=== PATIENT | female | born 1940 | race Caucasian/White ===

== ENCOUNTER 2021-02-19 17:29 | Inpatient (IN) | payer MEDICARE, SELFPAY ==
[2021-02-19] VITALS (8 sets, daily range): BP systolic 96–130; BP diastolic 54–60; PULSE 70–85; RESP 13–20; TEMP 36.2–36.7; O2SAT 98–100; BMI 25.7
--- NOTE | ~2021-02-19 | CT_ITS ---
EXAMINATION: CT brain wo con INDICATION: Head injury COMPARISON: 08/17/2017 TECHNIQUE: Standard unenhanced head CT. The dose-length product (DLP) was 1210.67 mGy-cm. The mA was adjusted according to patient size. Iterative reconstruction technique was employed. FINDINGS: There is a right frontal scalp hematoma. There is no acute intraparenchymal hemorrhage. No evidence of mass lesion. No evidence of acute infarction. There is mild periventricular and subcortic al hypodensity probably related to small vessel ischemic disease. There is mild prominence of the sul ci and ventricles related to cerebral atrophy. Intracranial calcified cerebral atherosclerosis is not ed. There are no extra-axial collections. There is no mass effect or midline shift. The orbits and so ft tissues are unremarkable. The visualized sinuses and mastoid air cells are well aerated. IMPRESSION: 1. Right frontal scalp hematoma without acute intracranial abnormality. 2. Age related findings. Reviewed, dictated and finalized at location F. Y CHILDHOOD ASSOCIATE
--- NOTE | ~2021-02-19 | XR_ITS ---
EXAMINATION: XR chest 1V portable INDICATION: Altered mental status and lung congestion TECHNIQUE: Portable AP chest at 1748 hours COMPARISON: 01/29/2018 FINDINGS: There are patchy opacities throughout all lung zones. No pleural effusion or pneumothorax i s identified. The cardiomediastinal silhouette is normal. IMPRESSION: 1. Patchy opacities throughout all lung zones, consistent with pneumonia and/or atelectasis. Reviewed, dictated and finalized at location F. GROUND DIRECTOR
--- NOTE | ~2021-02-19 | CT_ITS ---
EXAMINATION: CT cervical spine wo con DATE: 02/19/2021 18:05 INDICATION: Head injury TECHNIQUE: Computed tomography (CT) of the cervical spine was performed without intravenous contrast. The dose-length product (DLP) was 289.97 mGy-cm. Automated exposure control and iterative reconstruc tion technique were employed. COMPARISON: 08/17/2017 FINDINGS: There are 2 mm of unchanged anterolisthesis of C3 on C4, 3 mm of stable anterolisthesis of C4 on C5, and 4 mm of stable anterolisthesis of C5 on C6. The vertebral body heights are maintained. The odontoid is intact. There is severe loss of intervertebral disc space height at C6-7 and moderate loss of height at C4-5 and C5-6. There is moderate to severe multilevel facet and uncovertebral join t osteoarthritis. There is severe emphysema of the visualized lung apices. IMPRESSION: 1. Severe cervical spondylosis without acute findings or significant interval change. Reviewed, dictated and finalized at location F. MERCE ANALYST IMPRESSION: 1. Severe cervical spondylosis without acute findings or significant interval c leo.
--- NOTE | 2021-02-19 17:59 | ED.FALL ---
HPI - Fall General Chief Complaint: Fall Stated Complaint: fall, hi Time Seen by Provider: 02/19/21 17:29 History of Present Illness HPI Narrative: 81-year-old female presenting to the emergency department for evaluation after having a ground-level fall and striking her head. Patient's daughter reported that the patient is normally only ANO x2. Patient does have a significant hematoma on the right side forehead. Patient is also somnolent, she is responsive to voice but is not giving coherent answers. Nursing is communicating with daughter to confirm the patient's baseline. But states this is not a normal baseline for her mother. Daughter states that patient was started to have some signs of illness yesterday and today during transferring the patient was unstable and did have a ground-level fall. Patient is not vaccinated for COVID but her to be patient's physicians recommendations. Related Data Home Medications Medication Instructions Recorded Confirmed alprazolam 0.5 mg tablet 0.5 mg PO TID PRN 01/13/20 01/13/20 aspirin 81 mg tablet,delayed 81 mg PO DAILY 01/13/20 01/13/20 release cyclobenzaprine 10 mg tablet-TENS 5 mg PO TID PRN 01/13/20 01/13/20 unit electrode pads combo pack furosemide 40 mg tablet 40 mg PO QAM 01/13/20 01/13/20 glimepiride 2 mg tablet 2 mg PO BID 01/13/20 01/13/20 losartan 50 mg tablet 100 mg PO DAILY 01/13/20 01/13/20 metformin 500 mg tablet 1,000 mg PO BID 01/13/20 01/13/20 minocycline 100 mg capsule 100 mg PO DAILY 01/13/20 01/13/20 multivitamin with iron 1 tablet PO DAILY 01/13/20 01/13/20 oxycodone-acetaminophen 5 mg-325 1 tablet PO Q6H PRN 01/13/20 01/13/20 mg tablet pantoprazole 40 mg tablet,delayed 40 mg PO QAM 01/13/20 01/13/20 release prednisolone sodium phosphate 10 20 mg PO DAILY 01/13/20 01/13/20 mg disintegrating tablet simvastatin 20 mg tablet 40 mg PO DAILY 01/13/20 01/13/20 albuterol sulfate 1.25 mg INHALATION Q4H PRN 02/19/21 benzonatate mg PO 02/19/21 dicyclomine mg 02/19/21 ferrous sulfate [FeroSul] 325 mg BID 02/19/21 02/19/21 [id number]-[id number]-[id number] INHALATION 02/19/21 [Trelegy Ellipta] gabapentin 300 mg HS 02/19/21 02/19/21 potassium chloride [Micro-K 10] 20 meq PO DAILY 02/19/21 Allergies Allergy/AdvReac Type Severity Reaction Status Date / Time No Known Allergies Allergy Verified 02/19/21 18:24 Review of Systems Review of Systems: ROS unobtainable: Yes unobtainable due to mental status PMFSH Past Medical History Medical History Anemia Anxiety Diabetes HLD (hyperlipidemia) HTN (hypertension) Myelodysplasia (myelodysplastic syndrome) Osteoarthritis Spinal stenosis Thrombocytosis Surgical History Surgical History H/O tubal ligation Hx of cholecystectomy Hx of repair of rotator cuff Family History Family History Sibling Acute myocardial infarction Family history of chronic obstructive pulmonary disease Mother Family history of Alzheimer's disease Father Family history of malignant neoplasm of urinary bladder Social History Social History Smoking status: Former smoker Smoking end date: 02/10/16 Exam Narrative: APPEARANCE: Well appearing, no pain in distress, well-nourished. HEAD: normocephalic, contusion to right forehead. EYES: PERRLA/EOMI, conjunctivae clear. NOSE: Normal no drainage EARS:TMS clear with good light reflex. THROAT: Pharynx clear, no exudate. NECK: Supple. No adenopathy, no masses. RESPIRATORY: Airway patent, respirations nonlabored. Rhonchi bilaterally. CARDIOVASCULAR: Regular rate and rhythm without murmurs rubs or gallops. ABDOMINAL: Soft, nontender, nondistended, normal bowel sounds MUSCULOSKELETAL: Moves all extremities. Strength/ROM intact, No edema,
[2021-02-19 18:26] LABS: Add Urine Microscopic? NO; Appearance Urine Clear (Clear); Bilirubin Urine Negative (Negative); Blood Urine Negative (Negative); Color Urine Yellow (Yellow); Glucose Urine UA Negative (Negative); Ketones Urine Negative (Negative); Leukocyte Esterase Ur Negative LEU/UL (Negative); Nitrate Urine Negative (Negative); Protein Urine Negative (Negative); Specific Grav Ur 1.006 (1.001-1.035); Urobilinogen Urine Negative mg/dL (<2.0)
[2021-02-19 18:27] LABS: Basophils Absolute Auto 0.1 K/mm3 (0.0-0.1); Basophils Percent Auto 0.6 % (0.2-1.2); Eosinophils Absolute Auto 0.7 K/mm3 (0-0.3); Eosinophils Percent Auto 6.6 % (0-4.4); Hematocrit 35.2 % (37.0-47.0); Hemoglobin 11.1 g/dL (12.0-15.0); Immature Granulocyte Absolute 0.03 K/mm3 (0.00-0.031); Immature Granulocyte Percent A 0.3 % (0-0.5); Lymphocytes Absolute Auto 1.78 K/mm3 (0.9-3.2); Lymphocytes Percent Auto 17.3 % (18.3-44.2); Mean Corpuscular HGB Conc 31.5 g/dl (32-36); Mean Corpuscular Hemoglobin 28.1 pg (26-34); Mean Corpuscular Volume 89.1 fl (80-100); Mean Platelet Volume 8.5 fl (7.4-10.4); Monocytes Absolute Auto 0.7 K/mm3 (0.1-0.6); Monocytes Percent Auto 6.8 % (2.6-8.5); Neutrophils Percent Auto 68.4 % (45.5-73.1); Platelet Count Result 220 k/mm3 (150-375); Red Blood Count 3.95 M/mm3 (4.2-5.4); Red Cell Distribution Width 13.7 % (11.5-14.5); White Blood Count 10.3 K/mm3 (4.5-10.0)
[2021-02-19 18:34] LABS: Alanine Aminotransferase 17 U/L (4-35); Albumin Level 3.7 g/dL (3.5-5.1); Alkaline Phosphatase 58 U/L (38-126); Anion Gap 5 mmol/L (8-16); Aspartate Amino Transferase 22 U/L (14-36); Bilirubin,Total 0.4 mg/dL (0.2-1.3); Blood Urea Nitrogen 16 mg/dL (7-17); Calcium 8.9 mg/dL (8.4-10.2); Carbon Dioxide 30 mmol/L (22-30); Chloride 97 mmol/L (98-107); Estimated CRCL calculation 35 ml/min; Estimated Glomerular Filt Rate 53; Glucose 175 mg/dL (65-110); Potassium 4.3 mmol/L (3.4-5.0); Sodium 132 mmol/L (137-145)
[2021-02-19] MEDS: ASPIRIN 81 MG CHEWABLE TABLET 324 MG PO (19:45)
[2021-02-20] VITALS (8 sets, daily range): BP systolic 98–151; BP diastolic 51–67; PULSE 68–98; RESP 16–18; TEMP 35.8–36.7; O2SAT 91–98
--- NOTE | 2021-02-20 03:10 | ADMGEN ---
This patient, Shruti Polk, was admitted to [facility] Surg Room 323-01. Patient/family oriented to hospital policies and general routines including ID bracelet, bed and alarms, visiting hours, pain management, procedures, bathroom and other care routines, personal items, smoking policy, room service/diet, and visiting hours. Information on how to activate the Rapid Response Team has been discussed. Patient/Family are encouraged to report perceived risks to care and to ask questions if they do not understand what they are told or what they should do.
[2021-02-20 07:45] LABS: Glucose Point of Care 138 mg/dl (65-105)
--- NOTE | 2021-02-20 10:52 | PM.IMHP ---
H&P: HPI History of Present Illness Date/Time: 02/20/21 10:52 Chief Complaint: 81 years old female with past medical history of dementia, diabetes mellitus, hypertension, patient had a fall yesterday, she had her head, patient is poor historian patient is A&O x2 at baseline according to the record patient complains of generalized weakness generalized pain denies fever or chills at the ER chest x-ray showed concern for pneumonia CT scan of the head showed hematoma and the subscalpural area patient was admitted to the hospital for further evaluation and treatment COVID-19 test is pending Review of Systems Review of Systems: All systems reviewed & are unremarkable except as noted in HPI and below PMFSH Past Medical History Medical History (Updated 02/20/21 @ 10:56 by Danika Briceno MD) Anemia Anxiety Diabetes HLD (hyperlipidemia) HTN (hypertension) Myelodysplasia (myelodysplastic syndrome) Osteoarthritis Spinal stenosis Thrombocytosis Surgical History Surgical History H/O tubal ligation Hx of cholecystectomy Hx of repair of rotator cuff Family History Family History Sibling Acute myocardial infarction Family history of chronic obstructive pulmonary disease Mother Family history of Alzheimer's disease Father Family history of malignant neoplasm of urinary bladder Social History Social History Smoking status: Unknown if ever smoked Smoking end date: 02/10/16 Alcohol intake: unknown Substance use: unknown Spiritual care concerns: No Meds Home Medications and Allergies Home Medications Medication Instructions Recorded Confirmed Type alprazolam 0.5 mg tablet 0.5 mg PO TID PRN 01/13/20 02/20/21 History aspirin 81 mg tablet,delayed 81 mg PO DAILY 01/13/20 02/20/21 History release cyclobenzaprine 10 mg tablet-TENS 5 mg PO TID PRN 01/13/20 02/20/21 History unit electrode pads combo pack fluticasone fur. 100 mcg-umeclid 1 inh INHALATION Q24H #60 ea 01/13/20 02/20/21 Rx 62.5 mcg-vilant 25 mcg inhalat.powder furosemide 40 mg tablet 40 mg PO QAM 01/13/20 02/20/21 History glimepiride 2 mg tablet 2 mg PO BID 01/13/20 02/20/21 History losartan 50 mg tablet 100 mg PO DAILY 01/13/20 02/20/21 History metformin 500 mg tablet 1,000 mg PO BID 01/13/20 02/20/21 History minocycline 100 mg capsule 100 mg PO DAILY 01/13/20 02/20/21 History multivitamin with iron 1 tablet PO DAILY 01/13/20 02/20/21 History oxycodone-acetaminophen 5 mg-325 1 tablet PO Q6H PRN 01/13/20 02/20/21 History mg tablet pantoprazole 40 mg tablet,delayed 40 mg PO QAM 01/13/20 02/20/21 History release roflumilast 500 mcg tablet 500 mcg PO DAILY #30 tablet 01/13/20 02/20/21 Rx simvastatin 20 mg tablet 40 mg PO DAILY 01/13/20 02/20/21 History ProAir HFA 90 mcg/actuation See Rx Instructions .ROUTE 05/14/20 02/20/21 Rx aerosol inhaler .COMPLEX #9 gram NS albuterol sulfate 1.25 mg INHALATION Q4H PRN 02/19/21 02/20/21 History ferrous sulfate [FeroSul] 325 mg BID 02/19/21 02/19/21 History rxuiigfjfkf-vybmjnzld-ecbmrkeo INHALATION 02/19/21 History [Trelegy Ellipta] gabapentin 300 mg HS 02/19/21 02/19/21 History Allergies Allergy/AdvReac Type Severity Reaction Status Date / Time No Known Allergies Allergy Verified 02/19/21 22:43 Vital Signs Vital Signs - 24 hr 02/19/21 17:41 02/19/21 17:46 02/19/21 18:23 Temperature 98.1 F Pulse Rate 85 84 77 Respiratory Rate 18 16 20 Blood Pressure 118/57 L 96/55 L Pulse Oximetry 100 100 98 02/19/21 19:02 02/19/21 19:16 02/19/21 19:40 Temperature Pulse Rate 74 74 73 Respiratory Rate 14 13 15 Blood Pressure 130/57 L 125/60 126/54 L Pulse Oximetry 100 100 100 02/19/21 21:31 02/19/21 23:00 02/20/21 02:00 Temperature 97.2 F L 97.4 F L Pulse Rate 75 70
[2021-02-20] MEDS: oxyCODONE/ACETAMINOPHEN (*CRX) 5-325 MG TABLET 1 TABLET PO ×2 (11:09→20:16)
[2021-02-20 11:43] LABS: Basophils Absolute Auto 0.1 K/mm3 (0.0-0.1); Basophils Percent Auto 0.5 % (0.2-1.2); Eosinophils Absolute Auto 0.6 K/mm3 (0-0.3); Eosinophils Percent Auto 5.4 % (0-4.4); Hematocrit 36.3 % (37.0-47.0); Hemoglobin 11.6 g/dL (12.0-15.0); Immature Granulocyte Absolute 0.02 K/mm3 (0.00-0.031); Immature Granulocyte Percent A 0.2 % (0-0.5); Lymphocytes Absolute Auto 1.17 K/mm3 (0.9-3.2); Lymphocytes Percent Auto 11.3 % (18.3-44.2); Mean Corpuscular Hemoglobin 27.8 pg (26-34); Mean Corpuscular Volume 87.1 fl (80-100); Mean Platelet Volume 8.7 fl (7.4-10.4); Monocytes Absolute Auto 0.5 K/mm3 (0.1-0.6); Monocytes Percent Auto 4.9 % (2.6-8.5); Neutrophils Absolute Auto 8.1 K/mm3 (1.3-6.7); Neutrophils Percent Auto 77.7 % (45.5-73.1); Platelet Count Result 223 k/mm3 (150-375); Red Blood Count 4.17 M/mm3 (4.2-5.4); Red Cell Distribution Width 13.5 % (11.5-14.5); White Blood Count 10.4 K/mm3 (4.5-10.0)
[2021-02-20 11:46] LABS: Glucose Point of Care 220 mg/dl (65-105)
[2021-02-20 11:50] LABS: SARS-CoV-2 RNA PCR Negative
[2021-02-20 11:51] LABS: Lactic Acid Reflex 1.1 mmol/L (0.7-2.1)
[2021-02-20 11:53] LABS: Alanine Aminotransferase 17 U/L (4-35); Albumin Level 3.7 g/dL (3.5-5.1); Alkaline Phosphatase 65 U/L (38-126); Anion Gap 10 mmol/L (8-16); Aspartate Amino Transferase 21 U/L (14-36); Bilirubin,Total 0.4 mg/dL (0.2-1.3); Blood Urea Nitrogen 13 mg/dL (7-17); Calcium 5.8 mg/dL (8.4-10.2); Carbon Dioxide 28 mmol/L (22-30); Chloride 96 mmol/L (98-107); Estimated CRCL calculation 38 ml/min; Estimated Glomerular Filt Rate > 60; Glucose 235 mg/dL (65-110); Potassium 5.8 mmol/L (3.4-5.0); Sodium 134 mmol/L (137-145)
[2021-02-20 11:56] LABS: Magnesium 1.7 mg/dL (1.6-2.3)
[2021-02-20 11:58] LABS: CRP 2.2 mg/dL (<1.0)
[2021-02-20] MEDS: MINOCYCLINE HCL 50 MG CAPSULE 100 MG PO (12:35)
[2021-02-20] MEDS: PANTOPRAZOLE 40 MG TABLET PO (12:35)
[2021-02-20] MEDS: THERAPEUTIC MULTIVITAMINS/MINERALS TAB (*BKC) 1 TABLET PO (12:35)
[2021-02-20] MEDS: SIMVASTATIN 20 MG TABLET 40 MG PO (12:35)
[2021-02-20] MEDS: ROFLUMILAST 500 MCG TABLET PO (12:35)
[2021-02-20] MEDS: ASPIRIN 81 MG ENTERIC TABLET PO (12:35)
[2021-02-20 12:36] LABS: Free T4 Free Thyroxine 1.05 ng/mL (0.78-2.19)
[2021-02-20] MEDS: ENOXAPARIN 40 MG/0.4 ML SYRINGE SUB-Q (12:36)
[2021-02-20] MEDS: LOSARTAN POTASSIUM 50 MG TABLET 100 MG PO (12:36)
[2021-02-20] MEDS: INSULIN ASPART (*BKC) 100 UNITS/ML SUB-Q (12:37)
[2021-02-20 14:49] LABS: Hematocrit 34.5 % (37.0-47.0); Hemoglobin 11.3 g/dL (12.0-15.0)
[2021-02-20] MEDS: SODIUM POLYSTYRENE SULFONONATE 15 GM/60 ML BTL PO (14:53)
[2021-02-20 14:58] LABS: Potassium 3.8 mmol/L (3.4-5.0)
[2021-02-20] MEDS: SODIUM CHLORIDE 0.9% IV 500 ML 250 ML IV CONT (15:09)
[2021-02-20 15:46] LABS: Glucose Point of Care 157 mg/dl (65-105)
[2021-02-20] MEDS: GLIMEPIRIDE 2 MG TABLET PO (18:11)
[2021-02-20] MEDS: GABAPENTIN 300 MG CAPSULE PO (20:17)
[2021-02-20 21:23] LABS: Glucose Point of Care 174 mg/dl (65-105)
[2021-02-21] VITALS (9 sets, daily range): BP systolic 116; BP diastolic 50; PULSE 79–98; RESP 18; TEMP 36.6; O2SAT 86–97
[2021-02-21 07:28] LABS: Glucose Point of Care 134 mg/dl (65-105)
[2021-02-21] MEDS: PANTOPRAZOLE 40 MG TABLET PO (07:38)
[2021-02-21] MEDS: ASPIRIN 81 MG ENTERIC TABLET PO (07:38)
[2021-02-21] MEDS: SIMVASTATIN 20 MG TABLET 40 MG PO (07:38)
[2021-02-21] MEDS: GLIMEPIRIDE 2 MG TABLET PO (07:38)
[2021-02-21] MEDS: THERAPEUTIC MULTIVITAMINS/MINERALS TAB (*BKC) 1 TABLET PO (07:38)
[2021-02-21] MEDS: ROFLUMILAST 500 MCG TABLET PO (07:38)
[2021-02-21] MEDS: MINOCYCLINE HCL 50 MG CAPSULE 100 MG PO (07:39)
[2021-02-21] MEDS: ENOXAPARIN 40 MG/0.4 ML SYRINGE SUB-Q (07:39)
[2021-02-21 07:41] LABS: Basophils Absolute Auto 0.1 K/mm3 (0.0-0.1); Basophils Percent Auto 0.7 % (0.2-1.2); Eosinophils Absolute Auto 0.7 K/mm3 (0-0.3); Hemoglobin 12.1 g/dL (12.0-15.0); Immature Granulocyte Absolute 0.03 K/mm3 (0.00-0.031); Immature Granulocyte Percent A 0.4 % (0-0.5); Lymphocytes Absolute Auto 1.69 K/mm3 (0.9-3.2); Lymphocytes Percent Auto 23.3 % (18.3-44.2); Mean Corpuscular HGB Conc 32.7 g/dl (32-36); Mean Corpuscular Hemoglobin 28.2 pg (26-34); Mean Corpuscular Volume 86.2 fl (80-100); Mean Platelet Volume 8.6 fl (7.4-10.4); Monocytes Absolute Auto 0.5 K/mm3 (0.1-0.6); Monocytes Percent Auto 7.3 % (2.6-8.5); Neutrophils Absolute Auto 4.3 K/mm3 (1.3-6.7); Neutrophils Percent Auto 59.3 % (45.5-73.1); Platelet Count Result 245 k/mm3 (150-375); Red Blood Count 4.29 M/mm3 (4.2-5.4); Red Cell Distribution Width 13.6 % (11.5-14.5); White Blood Count 7.3 K/mm3 (4.5-10.0)
[2021-02-21] MEDS: oxyCODONE/ACETAMINOPHEN (*CRX) 5-325 MG TABLET 1 TABLET PO (07:41)
[2021-02-21 07:56] LABS: Alanine Aminotransferase 17 U/L (4-35); Albumin Level 3.8 g/dL (3.5-5.1); Alkaline Phosphatase 63 U/L (38-126); Anion Gap 7 mmol/L (8-16); Aspartate Amino Transferase 22 U/L (14-36); Bilirubin,Total 0.4 mg/dL (0.2-1.3); Blood Urea Nitrogen 9 mg/dL (7-17); Carbon Dioxide 30 mmol/L (22-30); Chloride 98 mmol/L (98-107); Estimated CRCL calculation 43 ml/min; Estimated Glomerular Filt Rate > 60; Glucose 124 mg/dL (65-110); Potassium 3.8 mmol/L (3.4-5.0); Sodium 135 mmol/L (137-145)
[2021-02-21] MEDS: FLUTICASONE/UMECLIDIN/VILANTER 100-62.5-25 MCG ELLIPTA 1 PUFF INHALATION (08:24)
--- NOTE | 2021-02-21 08:39 | PC.NURSE ---
Per MD Briceno, pt to discharge home after PFT for home o2 evaluation. Called PFT lab awaiting evaluation for discharge.
--- NOTE | 2021-02-21 11:06 | PC.NURSE ---
Called Md Paul r/t pt request for cough medication, and also to report PT/OT stated pt did well. Awaiting home 02 evaluation for possible discharge home today.
[2021-02-21 11:09] LABS: Glucose Point of Care 157 mg/dl (65-105)
--- NOTE | 2021-02-21 11:10 | PM.DS ---
DS: Admitting Diagnosis Discharge Date 02/21/2021 Admitting Diagnosis Mechanical fall DS: Discharge Diagnosis Discharge Diagnosis (1) Pneumonia: Qualifiers: Laterality: bilateral Lung location: unspecified part of lung Pneumonia type: due to unspecified organism Qualified Code(s): J18.9 - Pneumonia, unspecified organism Code(s): J18.9 - Pneumonia, unspecified organism Status: Acute Assessment and Plan: Reviewed chest x-ray Pending blood culture Status post IV Rocephin COVID-19 negative patient will be discharged on oral antibiotics Repeat chest x-ray in 4 weeks (2) Head injury: Qualifiers: Encounter type: initial encounter Qualified Code(s): S09.90XA - Unspecified injury of head, initial encounter Code(s): S09.90XA - Unspecified injury of head, initial encounter Status: Acute Assessment and Plan: No evidence of loss of consciousness CT scan is positive for head hematoma Benefit outweighed the risk (3) Dysphagia: Qualifiers: Dysphagia type: unspecified Qualified Code(s): R13.10 - Dysphagia, unspecified Code(s): R13.10 - Dysphagia, unspecified Status: Acute Assessment and Plan: Follow-up with PCP (4) Former smoker: Code(s): Z87.891 - Personal history of nicotine dependence Status: Acute Assessment and Plan: Counseling (5) Common variable immunodeficiency, unspecified: Code(s): D83.9 - Common variable immunodeficiency, unspecified Status: Acute Assessment and Plan: Follow-up with PCP (6) Myelodysplasia (myelodysplastic syndrome): Code(s): D46.9 - Myelodysplastic syndrome, unspecified Status: Inactive Assessment and Plan: Follow-up with PCP (7) HTN (hypertension): Code(s): I10 - Essential (primary) hypertension Status: Inactive Assessment and Plan: Patient was hypotensive on admission developed episodes of hypotension during hospitalization losartan was discontinued continue Lasix for now follow-up with PCP (8) Diabetes: Code(s): E11.9 - Type 2 diabetes mellitus without complications Status: Inactive Assessment and Plan: Resume home medication DS: Summary Hospital Course Hospital Course: Patient presented to the hospital status post fall was found to have scalp hematoma also patient was found to have a pneumonia COVID-19 was negative patient was treated with IV antibiotics during hospitalization patient was hypotensive losartan was discontinued blood pressure improved Patient will discharged on her home dose of Lasix measure blood pressure twice a day and follow-up with PCP Time Spent with Patient Time attestation: Total time spent providing and/or coordinating discharge services: Exam Narrative: Alert Chest no wheeze crackles Abdomen nontender nondistended CVS S1 + S2 Lower extremity edema DS: Data Data Completed and Pending Labs on day of discharge: Labs from last 24 hours 02/21/21 02/21/21 02/21/21 11:05 07:24 07:06 WBC RBC Hgb Hct MCV MCH MCHC RDW Plt Count MPV Immature Gran % (Auto) Neut % (Auto) Lymph % (Auto) [place] % (Auto) Eos % (Auto) Baso % (Auto) Lymph # (Auto) [place] # (Auto) Eos # (Auto) Baso # (Auto) Abs Immat Gran (auto) Absolute Neuts (auto) Absolute Nucleated RBC Nucleated RBC % Sodium Potassium Chloride Carbon Dioxide Anion Gap BUN Creatinine Estim Creat Clear Calc Estimated GFR Glucose POC Capillary Glucose 157 H 134 H Lactic Acid Calcium Magnesium Ferritin 114.00 Total Bilirubin AST ALT Alkaline Phosphatase C-Reactive Protein Total Protein Albumin Free T4 SARS-CoV-2 RNA (RT-PCR) 02/21/21 02/21/21 02/20/21 07:06 07:06 20:29 WBC 7.3 RBC 4.29 Hgb 12.1 Hct 37.0 MCV 86.2 MCH 28.2 MCHC 32.
--- NOTE | 2021-02-21 11:48 | HOMEO2EVAL ---
Evaluation was performed at [facility] Home Oxygen Evaluation RC: Home Oxygen (O2) Evaluation Start: 02/21/21 11:02 Freq: ONCE Status: Active Protocol: RPE Activity Type Activity Date Activity User E-Sign Co-Sign Detail Recorded Client Recorded Date Recorded By Document 02/21/21 11:00 LEE ANN [id number] 02/21/21 11:47 LEE ANN Document 02/21/21 11:05 LEE ANN [email or web address] 02/21/21 11:47 LEE ANN Document 02/21/21 11:10 LEE ANN [email or web address] 02/21/21 11:47 LEE ANN Document 02/21/21 11:15 LEE ANN [email or web address] 02/21/21 11:47 LEE ANN Document 02/21/21 11:20 LEE ANN [email or web address] 02/21/21 11:47 LEE ANN Document 02/21/21 11:30 LEE ANN [email or web address] 02/21/21 11:47 LEE ANN 02/21/21 02/21/21 02/21/21 11:00 11:05 11:10 Home O2 Evaluation Test Phase Resting Resting Resting Oxygen Delivery Room Air Nasal Cannula Nasal Cannula Oxygen Flow Rate (L/min) 1 2 Pulse Oximetry (90-100 %) 86 L 88 L 90 Pulse Rate (60-100 beats/min) 84 86 85 Activity Tolerance Ambulation Distance (feet) Ambulation Distance (meters) Treatment Charges O2 Evaluation - Inpatient 02/21/21 02/21/21 02/21/21 11:15 11:20 11:30 Home O2 Evaluation Test Phase Exercise Exercise Resting Oxygen Delivery Nasal Cannula Nasal Cannula Nasal Cannula Oxygen Flow Rate (L/min) 2 3 2 Pulse Oximetry (90-100 %) 88 L 91 90 Pulse Rate (60-100 beats/min) 97 98 Activity Tolerance Fair Ambulation Distance (feet) 100 Ambulation Distance (meters) 30.47 Treatment Charges
--- NOTE | 2021-02-21 11:48 | PCRCNOTE ---
HOME O2 EVAL COMPLET, PT NEEDS 2L AT REST AND 3L WITH ACTIVITY. PT HAS HOME O2 AND FAMILY WILL BRING IN TANK FOR DISCHARGE.
--- NOTE | 2021-02-21 12:17 | PC.NURSE ---
Called Tiffanie Sevilla at work number [phone] to arrange picking table worker for pt, pt is discharging from hospital and informed Tiffanie about medication to picking table worker from pharmacy. Pt will continued on keflex 500 mg TId for current infection. Tiffanie stated she would be able to picking table worker pt around 1500 today.
[2021-02-21 14:33] LABS: Hematocrit 34.3 % (37.0-47.0)
== END 2021-02-21 15:40 | disposition home or self-care (01) | DRG 194 ==
LOC: ANHED 19:21 → ANH3MEDSUR 02-20 07:54
PROVIDERS: Admitting Provider Internal Medicine; Emergency Provider Emergency Medicine; PCP Family Medicine Adolescent Medicine; Visit Provider Internal Medicine
DX: J18.9 Pneumonia, unspecified organism (principal); D83.9 Common variable immunodeficiency, unspecified; Z20.822 Contact with and (suspected) exposure to COVID-19; S00.03XA Contusion of scalp, initial encounter; W18.30XA Fall on same level, unspecified, initial encounter; R13.10 Dysphagia, unspecified; D46.9 Myelodysplastic syndrome, unspecified; E11.9 Type 2 diabetes mellitus without complications; I10 Essential (primary) hypertension; D64.9 Anemia, unspecified; F41.9 Anxiety disorder, unspecified; E78.5 Hyperlipidemia, unspecified; M19.90 Unspecified osteoarthritis, unspecified site; M48.00 Spinal stenosis, site unspecified; Z90.49 Acquired absence of other specified parts of digestive tract; Z87.891 Personal history of nicotine dependence; F03.90 Unspecified dementia, unspecified severity, without behavioral disturbance, psychotic disturbance, mood disturbance, and anxiety
CPT/HCPCS: 36415; 51701; 70450; 71045; 72125; 80053; 81003; 82728; 82948; 83605; 83735; 84132; 84439; 85014; 85018; 85025; 86140; 87040; 94618; 94640; 96365; 96367; 97161; 97165; 99285; A9270; C9803; J0456; J0696; J1650; J1815; J7040; U0003; U0005

== ENCOUNTER 2023-02-26 19:01 | Observation (INO) | payer MEDICARE, SELFPAY ==
--- NOTE | ~2023-02-26 | XR_ITS ---
EXAMINATION: XR chest 2V DATE: 02/26/2023 21:11 INDICATION: Cough TECHNIQUE: AP and lateral views of the chest are obtained. COMPARISON: 02/19/2021 FINDINGS: The lungs are hyperinflated but free of acute opacities. No pleural effusion or pneumothora x. The cardiomediastinal silhouette is normal. There is moderate thoracic spondylosis. IMPRESSION: 1. No acute cardiopulmonary abnormality. Reviewed, dictated and finalized at location F. P BALLER
[2023-02-26 18:55] VITALS: BP 161/86; PULSE 92; RESP 20; TEMP 36.4; O2SAT 100
[2023-02-26 19:14] LABS: Glucose Point of Care 180 mg/dl (65-105)
--- NOTE | 2023-02-26 20:52 | ED.RECABL ---
HPI - Recheck/Abnormal Lab/Rx General Chief Complaint: Recheck/Abnormal Lab/Rx Stated Complaint: SLURRED SPEECH, LOW BG Time Seen by Provider: 02/26/23 19:06 Source: patient and family Limitations: no limitations History of Present Illness HPI narrative: Patient is an 83-year-old female presents to the emergency department accompanied by family for a low blood sugar. Family was initially concerned because patient was seeming drowsy and speech seemed slurred and EMS was called and upon EMS arrival patient's blood sugar was found to be in the 40s and was given 200 cc of D10 which improved her blood sugar to the 300s and promptly resolved all her symptoms. Patient denies any current complaints aside from a mild headache for which she typically takes oxycodone on a regular basis. Patient denies any new or change medications she has been taking all her medications as prescribed. Patient denies use of insulin. Patient is checking her blood sugar regularly at home approximate 3 times a day and it has been in the 120s on average in her A1c most recently was 6. Patient admits to some slightly decreased oral intake because she has not been as hungry. Patient is to wear 4 L supplemental oxygen at all times COPD and denies being a smoker any longer. Patient admits to a chronic cough with some slight congestion. Patient admits to slight dehydration. Patient denies vomiting, sick contacts, fever, chest pain, difficulty breathing, numbness, weakness, confusion, vision changes, difficulty swallowing, dysphonia, recent injuries, recent illness, dysuria. Related Data Home Medications Medication Instructions Recorded Confirmed furosemide 40 mg tablet 40 mg PO QAM 01/13/20 09/01/22 multivitamin with iron (Daily 1 tablet PO DAILY 01/13/20 09/01/22 Vitamin with Iron tablet) naloxone 4 mg/actuation nasal spray 4 mg intranasal Q3M PRN 09/01/22 09/01/22 roflumilast 500 mcg tablet 500 mcg PO DAILY 09/01/22 09/01/22 Allergies Allergy/AdvReac Type Severity Reaction Status Date / Time No Known Allergies Allergy Verified 09/01/22 13:11 Review of Systems Review of Systems: A 10 system review of systems was completed on the patient and is negative except for what is stated in the HPI. Nursing and ancillary documentation was reviewed. [facility] Past Medical History Medical History Anemia Anxiety CAD (coronary artery disease) CT scan 12/2016 Chronic obstructive pulmonary disease Chronic pain Chronic respiratory failure with hypoxia Former smoker Generalized anxiety disorder Low back pain Malignant hypertension with systolic CHF, NYHA class 2 Myelodysplasia (myelodysplastic syndrome) Osteoarthritis Oxygen dependent Pulmonary hypertension due to lung diseases and hypoxia echocardiogram 03/2017 Pure hypercholesterolemia, unspecified Spinal stenosis Stenosis of right carotid artery (05/2017) Systolic CHF (2016) echocardiogram 2017 Thrombocytosis Type 2 diabetes mellitus with polyneuropathy Surgical History Surgical History H/O tubal ligation History of laminectomy Hx of cholecystectomy Hx of repair of rotator cuff Family History Family History Sibling Acute myocardial infarction Family history of chronic obstructive pulmonary disease Heart disease Mother Family history of Alzheimer's disease Father Family history of malignant neoplasm of urinary bladder Diabetes mellitus Social History Social History Smoking status: Former smoker Tobacco type: cigarettes Second hand tobacco smoke exposure: No Smoking end date: 02/10/16 Alcohol intake: current Alcohol use details: once a month Substance use: unknown Living arrangements: with family Occupation/Education: retire
[2023-02-26] MEDS: oxyCODONE/ACETAMINOPHEN (*CRX) 5-325 MG TABLET 1 TABLET PO (21:17)
[2023-02-26] MEDS: SODIUM CHLORIDE 0.9% IV 1,000 ML 999 ML IV CONT (21:17)
[2023-02-26 21:31] VITALS: BP 165/76; PULSE 78; RESP 18; O2SAT 99
[2023-02-26 21:37] LABS: Basophils Percent Auto 0.1 % (0.2-1.2); Eosinophils Absolute Auto 0.3 K/mm3 (0-0.3); Eosinophils Percent Auto 1.9 % (0-4.4); Hematocrit 38.7 % (37.0-47.0); Hemoglobin 12.3 g/dL (12.0-15.0); Immature Granulocyte Absolute 0.06 K/mm3 (0.00-0.031); Immature Granulocyte Percent A 0.4 % (0-0.5); Lymphocytes Absolute Auto 1.23 K/mm3 (0.9-3.2); Lymphocytes Percent Auto 8.8 % (18.3-44.2); Mean Corpuscular HGB Conc 31.8 g/dl (32-36); Mean Corpuscular Hemoglobin 28.5 pg (26-34); Mean Corpuscular Volume 89.6 fl (80-100); Mean Platelet Volume 8.5 fl (7.4-10.4); Monocytes Absolute Auto 0.9 K/mm3 (0.1-0.6); Monocytes Percent Auto 6.1 % (2.6-8.5); Neutrophils Absolute Auto 11.6 K/mm3 (1.3-6.7); Neutrophils Percent Auto 82.7 % (45.5-73.1); Platelet Count Result 274 k/mm3 (150-375); Red Blood Count 4.32 M/mm3 (4.2-5.4); Red Cell Distribution Width 13.6 % (11.5-14.5)
[2023-02-26 21:54] LABS: Alanine Aminotransferase 15 U/L (6-35); Albumin Level 3.7 g/dL (3.5-5.1); Alkaline Phosphatase 58 U/L (38-126); Anion Gap 6 mmol/L (8-16); Aspartate Amino Transferase 27 U/L (14-36); Bilirubin,Total 0.4 mg/dL (0.2-1.3); Blood Urea Nitrogen 8 mg/dL (7-17); Calcium 8.6 mg/dL (8.4-10.2); Carbon Dioxide 28 mmol/L (22-30); Chloride 92 mmol/L (98-107); Estimated CRCL calculation 41 ml/min; Estimated Glomerular Filt Rate > 60; Glucose 50 mg/dL (65-110); Magnesium 1.7 mg/dL (1.6-2.3); Sodium 126 mmol/L (137-145)
[2023-02-26 22:28] VITALS: BP 124/93; PULSE 88; RESP 17; O2SAT 98
[2023-02-26] MEDS: SODIUM CHLORIDE 0.9% IV 500 ML 999 ML IV CONT (22:29)
[2023-02-26] MEDS: DEXTROSE 50% 25 GM/50 ML SYRINGE IV PUSH (22:30)
[2023-02-26 22:43] LABS: Influenza A QL RT-PCR Negative (Negative); Influenza B QL RT-PCR Negative (Negative); RSV RNA, RT-PCR Negative (Negative); SARS-CoV-2 RNA PCR Negative (Negative)
[2023-02-26 23:18] LABS: Glucose Point of Care 96 mg/dl (65-105)
[2023-02-26 23:25] VITALS: BP 175/60
[2023-02-26 23:36] LABS: Appearance Urine Clear (Clear); Bilirubin Urine Negative (Negative); Blood Urine Negative (Negative); Color Urine Yellow (Yellow); Glucose Urine UA Negative (Negative); Ketones Urine Negative (Negative); Leukocyte Esterase Ur Negative LEU/UL (Negative); Nitrate Urine Negative (Negative); Protein Urine Negative (Negative); Specific Grav Ur 1.007 (1.001-1.035); Urobilinogen Urine 0.2 mg/dL (<2.0); pH Urine 6.5 (5.0-9.0)
[2023-02-26 23:39] LABS: Add Urine Microscopic? NO
[2023-02-26 23:59] VITALS: BP 119/96; PULSE 91; RESP 25; O2SAT 99
[2023-02-27] VITALS (19 sets, daily range): BP systolic 125–176; BP diastolic 62–104; PULSE 82–105; RESP 15–26; TEMP 36.7–37.2; O2SAT 94–100; BMI 23.3
--- NOTE | 2023-02-27 01:22 | PC.NURSE ---
Assumed care of pt. Report from CHEMO Bhat. Pt resting quietly per cart. New fsbs 105.
[2023-02-27 02:07] LABS: Glucose Point of Care 105 mg/dl (65-105)
--- NOTE | 2023-02-27 02:15 | PC.NURSE ---
Report to CHEMO Antunez in ICU.
--- NOTE | 2023-02-27 03:05 | ADMIMU ---
This patient, Shruti Polk, was admitted to IMU status, and placed in Intensive Care Unit-9. Patient/family oriented to hospital policies and general routines including ID bracelet, bed and alarms, visiting hours, pain management, procedures, bathroom and other care routines, personal items, smoking policy, room service/diet, and visiting hours. Valuables list has been completed. Information on how to activate the Rapid Response Team has been discussed. Patient/Family are encouraged to report perceived risks to care and to ask questions if they do not understand what they are told or what they should do.
[2023-02-27 03:41] LABS: Glucose Point of Care 78 mg/dl (65-105)
--- NOTE | 2023-02-27 03:53 | PC.NURSE ---
Patient given 2 4oz servings of apple juice for FSBS trending down again. She is currently working on drinking it.
[2023-02-27] MEDS: IPRATROPIUM 0.5 MG/ALBUTEROL SULFATE 2.5 MG AMPUL.NEB 3 ML INHALATION ×2 (04:35→08:11)
[2023-02-27] MEDS: oxyCODONE/ACETAMINOPHEN (*CRX) 5-325 MG TABLET 1 TABLET PO ×3 (04:53→21:05)
[2023-02-27 06:13] LABS: Glucose Point of Care 101 mg/dl (65-105)
[2023-02-27 08:02] LABS: Glucose Point of Care 97 mg/dl (65-105)
[2023-02-27 09:28] LABS: Hemoglobin A1C 6.1 % (<5.7)
[2023-02-27 10:11] LABS: Glucose Point of Care 182 mg/dl (65-105)
[2023-02-27 12:15] LABS: Glucose Point of Care 136 mg/dl (65-105)
[2023-02-27] MEDS: LEVALBUTEROL NEB 1.25 MG/3 ML INHALATION (14:35)
[2023-02-27] MEDS: ASPIRIN 81 MG ENTERIC TABLET PO (14:48)
[2023-02-27] MEDS: DULoxetine HCL 60 MG CAPSULE.DR PO (14:48)
[2023-02-27] MEDS: DICYCLOMINE HCL 10 MG CAPSULE 20 MG PO ×2 (14:50→16:08)
[2023-02-27] MEDS: CYCLOBENZAPRINE HCL 10 MG TABLET PO ×2 (14:50→16:08)
[2023-02-27] MEDS: LOSARTAN POTASSIUM 100 MG TABLET PO (14:50)
[2023-02-27] MEDS: MINOCYCLINE HCL 100 MG CAPSULE PO (14:51)
[2023-02-27] MEDS: PANTOPRAZOLE 40 MG TABLET PO (14:51)
[2023-02-27] MEDS: THERAPEUTIC MULTIVITAMINS/MINERALS TAB (*BKC) 1 TABLET PO (14:51)
[2023-02-27] MEDS: SIMVASTATIN 20 MG TABLET 40 MG PO (14:51)
[2023-02-27] MEDS: predniSONE 10 MG TABLET PO (14:52)
[2023-02-27] MEDS: FLUTICASONE/UMECLIDIN/VILANTER 100-62.5-25 MCG ELLIPTA 1 PUFF INHALATION (14:57)
--- NOTE | 2023-02-27 15:12 | PCPTNOTE ---
Awaiting complete medical work up (history and physical by hospitalist) prior to PT evaluation.
--- NOTE | 2023-02-27 15:31 | PCOTNOTE ---
Awaiting complete medical work up (history and physical by hospitalist) prior to OT evaluation.
--- NOTE | 2023-02-27 15:54 | PM.IMHP ---
H&P: HPI History of Present Illness Date/Time: 02/27/23 15:54 Chief Complaint: Confusion Low blood glucose Narrative: Shruti Polk is an 83 yo F with a mHx signficant for NIDDM, obesity, COPD, Depression, HTN, IDDA, GERD, Dyslipidemia She states that though she is on a Glimepiride and Metformin regimen, she sometimes has no urge to eat despite taking her medications religiously; on the day of admission, she developed confusion. With no known modifying factors, it was associated with a poor functional status; It was not associated with fevers, chills, nausea, vomiting, chest pain, dysuria, flank pain, joint/skin changes. EMS was summoned and the POCT showed her BG levels in the 40s and was given 200 cc of D10 which improved her blood sugar to the 300s and promptly resolved all her symptoms. Patient monitors her blood sugar regularly at home approximate 3 times a day and it has been in the 120s on average in her A1c most recently was 6.? With a prolonged smoking history (quit >5 years ago), she is oxygen dependent (4L); denies alcohol or recreational/illicit drug use. Her family hx is not contributory to the PC. At the bedside, she is calm and alert; not in painful or respiratory distress. CXR: No acute cardiopulmonary abnormality. CBC reveals a white blood cell count of 14 and otherwise grossly within normal limits.? Comprehensive metabolic panel reveals a sodium of 126, blood sugar of 50.? Magnesium is 1.7.? Urinalysis grossly within normal limits.? Rapid influenza/ RSV/ COVID-19 PCR is negative. She will be admitted, evaluated and managed for neuroglycopenia, symptomatic hypoglycemia and acute metabolic encephalopathy. Review of Systems Constitutional: Constitutional: Reports no additional constitutional complaints and Reports fatigue Eyes: Eyes: Reports no additional eye complaints ENT: Reports system reviewed and no additional complaints, except as documented, Reports Normal hearing present and Denies dysphagia Cardiovascular: Cardiovascular: Reports no additional cardiovascular complaints Respiratory: Respiratory: Reports cough, Reports dyspnea and Reports dyspnea on exertion Gastrointestinal: Gastrointestinal: Reports no additional gastrointestinal complaints Genitourinary: Genitourinary: Denies flank pain and Denies urinary urgency Musculoskeletal: Musculoskeletal: Reports no additional musculoskeletal complaints and Denies myalgias Integumentary/Breasts: Skin/Breast: Reports dry skin Neurologic: Reports system reviewed and no additional complaints, except as documented Psychiatric: Psychiatric: Reports no additional psychiatric complaints PMFSH Past Medical History Medical History Anemia Anxiety CAD (coronary artery disease) CT scan 12/2016 Chronic obstructive pulmonary disease Chronic pain Chronic respiratory failure with hypoxia Former smoker Generalized anxiety disorder Low back pain Malignant hypertension with systolic CHF, NYHA class 2 Myelodysplasia (myelodysplastic syndrome) Osteoarthritis Oxygen dependent Pulmonary hypertension due to lung diseases and hypoxia echocardiogram 03/2017 Pure hypercholesterolemia, unspecified Spinal stenosis Stenosis of right carotid artery (05/2017) Systolic CHF (2016) echocardiogram 2017 Thrombocytosis Type 2 diabetes mellitus with polyneuropathy Surgical History Surgical History H/O tubal ligation History of laminectomy Hx of cholecystectomy Hx of repair of rotator cuff Family History Family History Sibling Acute myocardial infarction Family history of chronic obstructive pulmonary disease Heart disease Mother Family history of Alzheimer's disease Father Family history of malignant neoplasm of urinary bladder Diabetes mellitus Social History Social
[2023-02-27] MEDS: FERROUS SULFATE 325 MG TABLET DR PO (16:10)
[2023-02-27] MEDS: TRIAMCINOLONE ACET 0.1% CREAM 15 GM TUBE 1 APPLIC TOPICAL (16:10)
--- NOTE | 2023-02-27 16:17 | PC.NURSE ---
This patient, Shruti Polk, was transferred to [facility] on 02/27/23 at 1615. Personal belongings sent with patient. Report given to Accepting RN. Appropriate documentation sent with patient.
[2023-02-27 17:05] LABS: Glucose Point of Care 208 mg/dl (65-105)
[2023-02-27] MEDS: INSULIN ASPART (*BKC) 100 UNITS/ML SUB-Q (17:34)
[2023-02-27] MEDS: INSULIN GLARGINE (*BKC) 100 UNITS/ML 9 UNITS SUB-Q (20:29)
[2023-02-27] MEDS: GABAPENTIN 300 MG CAPSULE PO (20:30)
[2023-02-28] VITALS (8 sets, daily range): BP systolic 158–163; BP diastolic 70–89; PULSE 66–88; RESP 18–20; TEMP 36–36.4; O2SAT 95–100
[2023-02-28 05:17] LABS: Glucose Point of Care 233 mg/dl (65-105)
[2023-02-28 05:17] LABS: Glucose Point of Care 239 mg/dl (65-105)
[2023-02-28 05:21] LABS: Basophils Percent Auto 0.5 % (0.2-1.2); Eosinophils Absolute Auto 0.1 K/mm3 (0-0.3); Hematocrit 35.6 % (37.0-47.0); Hemoglobin 11.4 g/dL (12.0-15.0); Immature Granulocyte Absolute 0.03 K/mm3 (0.00-0.031); Immature Granulocyte Percent A 0.3 % (0-0.5); Lymphocytes Absolute Auto 1.36 K/mm3 (0.9-3.2); Lymphocytes Percent Auto 15.4 % (18.3-44.2); Mean Corpuscular Hemoglobin 28.4 pg (26-34); Mean Corpuscular Volume 88.8 fl (80-100); Mean Platelet Volume 8.5 fl (7.4-10.4); Monocytes Absolute Auto 0.6 K/mm3 (0.1-0.6); Neutrophils Absolute Auto 6.7 K/mm3 (1.3-6.7); Neutrophils Percent Auto 75.8 % (45.5-73.1); Platelet Count Result 276 k/mm3 (150-375); Red Blood Count 4.01 M/mm3 (4.2-5.4); Red Cell Distribution Width 13.5 % (11.5-14.5); White Blood Count 8.8 K/mm3 (4.5-10.0)
[2023-02-28 05:31] LABS: Glucose Point of Care 145 mg/dl (65-105)
[2023-02-28 05:32] LABS: Alanine Aminotransferase 16 U/L (6-35); Albumin Level 3.6 g/dL (3.5-5.1); Alkaline Phosphatase 60 U/L (38-126); Anion Gap 2 mmol/L (8-16); Aspartate Amino Transferase 27 U/L (14-36); Bilirubin,Total 0.6 mg/dL (0.2-1.3); Blood Urea Nitrogen 8 mg/dL (7-17); Calcium 8.8 mg/dL (8.4-10.2); Carbon Dioxide 32 mmol/L (22-30); Chloride 95 mmol/L (98-107); Estimated CRCL calculation 41 ml/min; Estimated Glomerular Filt Rate > 60; Glucose 154 mg/dL (65-110); Sodium 129 mmol/L (137-145)
[2023-02-28] MEDS: FLUTICASONE/UMECLIDIN/VILANTER 100-62.5-25 MCG ELLIPTA 1 PUFF INHALATION (07:05)
[2023-02-28] MEDS: LEVALBUTEROL NEB 1.25 MG/3 ML INHALATION ×2 (07:05→13:00)
[2023-02-28 08:23] LABS: Glucose Point of Care 110 mg/dl (65-105)
[2023-02-28] MEDS: LOSARTAN POTASSIUM 100 MG TABLET PO (10:11)
[2023-02-28] MEDS: DICYCLOMINE HCL 10 MG CAPSULE 20 MG PO ×2 (10:11→14:31)
[2023-02-28] MEDS: PANTOPRAZOLE 40 MG TABLET PO (10:11)
[2023-02-28] MEDS: CYCLOBENZAPRINE HCL 10 MG TABLET PO ×2 (10:12→14:31)
[2023-02-28] MEDS: DULoxetine HCL 60 MG CAPSULE.DR PO (10:12)
[2023-02-28] MEDS: ASPIRIN 81 MG ENTERIC TABLET PO (10:12)
[2023-02-28] MEDS: FERROUS SULFATE 325 MG TABLET DR PO (10:12)
[2023-02-28] MEDS: SIMVASTATIN 20 MG TABLET 40 MG PO (10:12)
[2023-02-28] MEDS: predniSONE 10 MG TABLET PO (10:12)
[2023-02-28] MEDS: THERAPEUTIC MULTIVITAMINS/MINERALS TAB (*BKC) 1 TABLET PO (10:12)
[2023-02-28] MEDS: oxyCODONE/ACETAMINOPHEN (*CRX) 5-325 MG TABLET 1 TABLET PO ×2 (10:13→14:31)
[2023-02-28] MEDS: ENOXAPARIN 40 MG/0.4 ML SYRINGE SUB-Q (10:15)
[2023-02-28] MEDS: TRIAMCINOLONE ACET 0.1% CREAM 15 GM TUBE 1 APPLIC TOPICAL (10:30)
[2023-02-28] MEDS: MINOCYCLINE HCL 100 MG CAPSULE PO (10:30)
[2023-02-28 12:08] LABS: Glucose Point of Care 168 mg/dl (65-105)
--- NOTE | 2023-02-28 13:47 | PM.DS ---
DS: Admitting Diagnosis Discharge Date Admitting Diagnosis neuroglycopenia DS: Discharge Diagnosis Discharge Diagnosis (1) Hypoglycemia: Code(s): E16.2 - Hypoglycemia, unspecified Status: Acute Assessment and Plan: Resolved (2) Neuroglycopenia: Code(s): E16.2 - Hypoglycemia, unspecified Status: Acute Assessment and Plan: Resolved (3) Type 2 diabetes mellitus with polyneuropathy: Code(s): E11.42 - Type 2 diabetes mellitus with diabetic polyneuropathy Status: Chronic Assessment and Plan: She will discuss with her primary care visit simply D prescribing sulfonylurea and replacing with an alternative if necessary In the meantime she will not the sulfonylurea blood sugar is below 140 or if she is to as much as her norm (4) Hyponatremia: Code(s): E87.1 - Hypo-osmolality and hyponatremia Status: Acute Assessment and Plan: Chronic and stable 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, possibly in part due to polypharmacy (5) Chronic pain: Code(s): G89.29 - Other chronic pain Status: Chronic Assessment and Plan: Stable (6) Chronic respiratory failure with hypoxia: Code(s): J96.11 - Chronic respiratory failure with hypoxia Status: Chronic Assessment and Plan: Stable (7) Essential (primary) hypertension: Code(s): I10 - Essential (primary) hypertension Status: Acute Assessment and Plan: Stable (8) Myelodysplasia (myelodysplastic syndrome): Code(s): D46.9 - Myelodysplastic syndrome, unspecified Status: Chronic Assessment and Plan: CBC stable (9) CAD (coronary artery disease): Code(s): I25.10 - Atherosclerotic heart disease of [place] coronary artery without angina pectoris Status: Chronic Assessment and Plan: We stable (10) Pulmonary hypertension due to lung diseases and hypoxia: Code(s): I27.23 - Pulmonary hypertension due to lung diseases and hypoxia Status: Chronic Assessment and Plan: Clinically stable (11) Pure hypercholesterolemia, unspecified: Code(s): E78.00 - Pure hypercholesterolemia, unspecified Status: Chronic Assessment and Plan: Continue home regimen DS: Summary Hospital Course Reason for hospitalization: Hypoglycemia Hospital Course: Admitted and blood sugar 50 and neuroglycopenia symptoms. Confusion dysarthria. Was given D50 and blood sugar increased 300 symptoms. Oral hypoglycemic agents were held and she was placed on basal glargine 9 units plus sliding scale. She ate well. She admitted hypoglycemia she was not eating as well and took her medicines as usual. She did have chronic hyponatremia during hospitalization with sodium 126 admission 129 at discharge. This is near her baseline. Other labs were stable as well. Chest x-ray revealed no infiltrates and UA revealed no infection. Time Spent with Patient Time attestation: Total time spent providing and/or coordinating discharge services: Exam Narrative: HEENT: PERRL, sclerae nonicteric, pharyngeal mucosa pink and intact NECK: No JVD CHEST: Decreased breath sounds bilaterally. Normal effort. HEART: NL S1/S2, regular, no murmur ABDOMEN: BS+, soft, nontender, no mass, no bruits EXTREMITIES: No cyanosis, edema, or clubbing NEUROLOGIC: CN intact and symmetric to inspection. MUSCULOSKELETAL: Tone and strength symmetric. PSYCH: Alert. Oriented to person, place, and time. DS: Data Data Completed and Pending Labs on day of discharge: Labs from last 24 hours 02/28/23 02/28/23 02/28/23 11:49 08:20 05:18 WBC RBC Hgb Hct MCV MCH MCHC RDW Plt Count MPV Immature Gran % (Auto) Neut % (Auto) Lymph % (Auto) [place] % (Auto) Eos % (Auto) Baso % (Auto) Lymph # (Auto) [place] # (Auto) Eos # (Auto) Baso # (Auto) Abs Immat Gran (auto) Absolute Neuts (auto) Absolute Nu
== END 2023-02-28 15:35 | disposition home or self-care (01) ==
LOC: ANHED 02-27 01:26 → ANHICU 02-27 06:04 → ANH2MED 02-28 14:00 → ANHICU 03-10 11:38 → ANH2MED 03-10 11:39
PROVIDERS: Internal Medicine; Admitting Provider Internal Medicine; Emergency Provider Student in an Organized Health Care Education/Training Program; PCP Family Medicine Adolescent Medicine; Visit Provider Internal Medicine
DX: E11.649 Type 2 diabetes mellitus with hypoglycemia without coma (principal); J96.11 Chronic respiratory failure with hypoxia; Z99.81 Dependence on supplemental oxygen; J44.9 Chronic obstructive pulmonary disease, unspecified; D46.9 Myelodysplastic syndrome, unspecified; I25.10 Atherosclerotic heart disease of native coronary artery without angina pectoris; G89.29 Other chronic pain; I11.0 Hypertensive heart disease with heart failure; I50.20 Unspecified systolic (congestive) heart failure; E87.1 Hypo-osmolality and hyponatremia; D50.9 Iron deficiency anemia, unspecified; Z20.822 Contact with and (suspected) exposure to COVID-19; E11.42 Type 2 diabetes mellitus with diabetic polyneuropathy; F41.1 Generalized anxiety disorder; F32.A Depression, unspecified; K21.9 Gastro-esophageal reflux disease without esophagitis; I27.23 Pulmonary hypertension due to lung diseases and hypoxia; E78.00 Pure hypercholesterolemia, unspecified; Z87.891 Personal history of nicotine dependence; Z79.51 Long term (current) use of inhaled steroids; Z79.52 Long term (current) use of systemic steroids; Z79.84 Long term (current) use of oral hypoglycemic drugs; Z79.82 Long term (current) use of aspirin; Z79.891 Long term (current) use of opiate analgesic; Z79.899 Other long term (current) drug therapy; Z82.5 Family history of asthma and other chronic lower respiratory diseases
CPT/HCPCS: 36415; 71046; 80053; 81003; 82948; 83036; 83735; 85025; 87637; 94640; 96361; 96372; 96374; 97161; 97165; 99285; A9270; G0378; J1650; J1815; J7030; J7040; J7512

== ENCOUNTER 2023-10-11 17:19 | Emergency (ER) | payer MEDICARE, SELFPAY ==
--- NOTE | ~2023-10-11 | XR_ITS ---
EXAMINATION: XR chest 1V DATE: 10/11/2023 19:17 INDICATION: Fall TECHNIQUE: frontal view of the chest was obtained. COMPARISON: Chest radiograph dated 02/26/2023 FINDINGS: Increased interstitial pattern in the bilateral lower lungs with subtle airspace opacities in the rig ht middle lobe obscuring the right heart border. No pleural effusion or pneumothorax. Heart size with in normal limits for AP technique. IMPRESSION: 1. Airspace opacity right middle lobe which could represent atelectasis or pneumonia. 2. Mild increased interstitial pattern in the lateral lower lungs suspicious for mild pulmonary edema with differential also including atelectasis or pneumonia. Reviewed, dictated and finalized at location A. IMPRESSION: 1. Airspace opacity right middle lobe which could represent atelectasis or pneu monia. 2. Mild increased interstitial pattern in the lateral lower lungs suspicious fo r mild pulmonary edema with differential also including atelectasis or pneumoni a.
--- NOTE | ~2023-10-11 | XR_ITS ---
EXAMINATION: XR hip LT 2V w AP pelvis DATE: 10/11/2023 19:17 INDICATION: Left hip pain post fall TECHNIQUE: Anteroposterior view of the pelvis and anteroposterior and cross-table lateral views of th e left hip were obtained. COMPARISON: None. FINDINGS: Oblique intratrochanteric/subtrochanteric fracture of the proximal left femur with 1 cm medial displa cement along with mild proximal migration. No other fractures identified. Mild lumbar dextrocurvature with severe spondylosis. Mild bilateral hip and sacral iliac osteoarthritis. Cholecystectomy clips i n the right upper quadrant. IMPRESSION: 1. 1 cm medial displacement of an intratrochanteric/subtrochanteric fracture of the proximal left fem ur. Reviewed, dictated and finalized at location A. IMPRESSION: 1. 1 cm medial displacement of an intratrochanteric/subtrochanteric fracture of the proximal left femur.
[2023-10-11 17:22] VITALS: BP 128/87; PULSE 89; RESP 20; TEMP 36.7; O2SAT 94
[2023-10-11 17:25] VITALS: PULSE 90; RESP 19; O2SAT 95
[2023-10-11 17:47] VITALS: PULSE 88; RESP 24; O2SAT 95
[2023-10-11 18:01] VITALS: PULSE 88; RESP 13
[2023-10-11 18:29] VITALS: PULSE 90; RESP 18
--- NOTE | 2023-10-11 18:53 | ED.FALL ---
HPI - Fall General Chief Complaint: Fall Stated Complaint: fall, hip injury Time Seen by Provider: 10/11/23 17:40 Related Data Home Medications Medication Instructions Recorded Confirmed multivitamin with iron (Daily 1 tablet PO DAILY 01/13/20 04/17/23 Vitamin with Iron tablet) naloxone 4 mg/actuation nasal spray 4 mg intranasal Q3M PRN drug OD 09/01/22 04/17/23 aspirin 81 mg tablet,delayed 81 mg PO DAILY 02/27/23 04/17/23 release metformin 500 mg tablet 1,000 mg PO BID 02/27/23 04/17/23 pantoprazole 40 mg tablet,delayed 40 mg PO DAILY 02/27/23 04/17/23 release simvastatin 40 mg tablet 40 mg PO DAILY 02/27/23 04/17/23 Allergies Allergy/AdvReac Type Severity Reaction Status Date / Time No Known Allergies Allergy Verified 10/11/23 17:27 [facility] Past Medical History Medical History Anemia Anxiety CAD (coronary artery disease) CT scan 12/2016 Chronic obstructive pulmonary disease Chronic pain Chronic respiratory failure with hypoxia Former smoker Generalized anxiety disorder Low back pain Malignant hypertension with systolic CHF, NYHA class 2 Myelodysplasia (myelodysplastic syndrome) Osteoarthritis Oxygen dependent Pulmonary hypertension due to lung diseases and hypoxia echocardiogram 03/2017 Pure hypercholesterolemia, unspecified Spinal stenosis Stenosis of right carotid artery (05/2017) Systolic CHF (2016) echocardiogram 2016 Thrombocytosis Type 2 diabetes mellitus with polyneuropathy Surgical History Surgical History H/O tubal ligation History of laminectomy Hx of cholecystectomy Hx of repair of rotator cuff Family History Family History Sibling Acute myocardial infarction Family history of chronic obstructive pulmonary disease Heart disease Mother Family history of Alzheimer's disease Father Family history of malignant neoplasm of urinary bladder Diabetes mellitus Social History Social History Smoking packs per day: 2 Smoking cigarettes per day: 40.0 Years smoked: 50 Smoking pack-years: 100.00 Smoking status: Former smoker Tobacco type: cigarettes Second hand tobacco smoke exposure: No Alcohol intake: former Alcohol use details: once a month Substance use: never Do You Feel Safe in your Home?: Yes Lack of Transportation: No Lack of Food: Never True Current Housing: I Have Housing Concerned About Future Housing: No Difficulty Paying Gas/Electric Bills: No Difficulty Paying for Meds: No Currently Unemployed: No Education: Grade School Difficulty w/ Childcare or Family Care: No Living arrangements: with family Occupation/Education: retired Gender identity (if verbalized by the patient): Female Spiritual care concerns: No Agree to blood products: Yes Exam Narrative: General: Alert, awake, afebrile, in no acute distress. Neck: Trachea midline, no JVD, no lymphadenopathy. Cardiovascular: Regular rate and rhythm, no murmurs, rubs or gallops, no peripheral edema. Respiratory: Clear to auscultation bilaterally, no tachypnea, no wheezing, no rhonchi, no rubs, no respiratory distress. Abdomen: Soft, nontender, nondistended, no rebound, no guarding, no peritoneal signs. Musculoskeletal: Left lower extremity internally rotated and shortened, intact PT and DP pulses of the left lower extremity. Skin: No rashes or petechia, no signs of infection. Neurological: Alert and oriented to person, place, and time. Follows all commands. No focal deficits, speech is clear and fluent. Course Vital Signs Vital signs: Vital Signs Temperature 98.0 F 10/11/23 17:22 Pulse Rate 89 10/11/23 17:22 Respiratory Rate 20 10/11/23 17:22 Blood Pressure 128/87 10/11/23 17:22 Pulse Oximetry
--- NOTE | 2023-10-11 19:10 | ECG_ITS ---
Test Date: 2023-10-11 19:41:09 Measurements Intervals [place] Rate: 92 P: -27 KS: 181 QRS: -81 QRSD: 130 T: 45 QT: 367 QTc: 455 Interpretive Statements SINUS RHYTHM RIGHT BUNDLE BRANCH BLOCK LEFT ANTERIOR FASCICULAR BLOCK BASELINE ARTIFACT- I, II, III, AVR, AVL ABNORMAL ECG No previous ECG available for comparison Electronically Signed On 10-11-2023 20:16:07 CDT by Diego Valdivia D.O.
[2023-10-11] MEDS: MORPHINE SULFATE (*CRX) 2 MG/ML INJ IV PUSH (19:49)
[2023-10-11] MEDS: ONDANSETRON INJ 4 MG/2 ML VIAL IV PUSH (19:49)
[2023-10-11 19:57] LABS: Basophils Percent Auto 0.1 % (0.2-1.2); Eosinophils Absolute Auto 0.1 K/mm3 (0-0.3); Eosinophils Percent Auto 0.3 % (0-4.4); Hematocrit 31.9 % (37.0-47.0); Hemoglobin 9.9 g/dL (12.0-15.0); Immature Granulocyte Absolute 0.09 K/mm3 (0.00-0.031); Immature Granulocyte Percent A 0.5 % (0-0.5); Lymphocytes Absolute Auto 1.35 K/mm3 (0.9-3.2); Lymphocytes Percent Auto 7.3 % (18.3-44.2); Mean Corpuscular Hemoglobin 28.1 pg (26-34); Mean Corpuscular Volume 90.6 fl (80-100); Mean Platelet Volume 8.7 fl (7.4-10.4); Monocytes Absolute Auto 0.9 K/mm3 (0.1-0.6); Monocytes Percent Auto 4.9 % (2.6-8.5); Neutrophils Percent Auto 86.9 % (45.5-73.1); Platelet Count Result 252 k/mm3 (150-375); Red Blood Count 3.52 M/mm3 (4.2-5.4); Red Cell Distribution Width 15.9 % (11.5-14.5); White Blood Count 18.4 K/mm3 (4.5-10.0)
[2023-10-11 20:06] LABS: Alanine Aminotransferase 14 U/L (6-35); Albumin Level 3.5 g/dL (3.5-5.1); Alkaline Phosphatase 40 U/L (38-126); Anion Gap 13 mmol/L (4-12); Aspartate Amino Transferase 24 U/L (14-36); Bilirubin,Total 0.2 mg/dL (0.2-1.3); Blood Urea Nitrogen 18 mg/dL (7-17); Calcium 8.3 mg/dL (8.4-10.2); Carbon Dioxide 25 mmol/L (22-30); Chloride 93 mmol/L (98-107); Estimated CRCL calculation 24 ml/min; Estimated Glomerular Filt Rate 43; Glucose 150 mg/dL (65-110); Potassium 4.3 mmol/L (3.4-5.0); Sodium 131 mmol/L (137-145)
[2023-10-11 20:29] VITALS: BP 139/52; PULSE 95; RESP 16; O2SAT 94
== END 2023-10-11 20:59 | disposition short-term general hospital (02) ==
PROVIDERS: Emergency Provider Emergency Medicine; PCP Family Medicine Adolescent Medicine
DX: S72.142A Displaced intertrochanteric fracture of left femur, initial encounter for closed fracture (principal); S72.22XA Displaced subtrochanteric fracture of left femur, initial encounter for closed fracture; W18.30XA Fall on same level, unspecified, initial encounter; I25.10 Atherosclerotic heart disease of native coronary artery without angina pectoris; F41.9 Anxiety disorder, unspecified; I11.0 Hypertensive heart disease with heart failure; I50.20 Unspecified systolic (congestive) heart failure; Z99.81 Dependence on supplemental oxygen; E78.00 Pure hypercholesterolemia, unspecified; E11.42 Type 2 diabetes mellitus with diabetic polyneuropathy; Z87.891 Personal history of nicotine dependence
CPT/HCPCS: 36415; 71045; 73502; 80053; 85025; 86850; 86900; 86901; 93005; 96374; 96375; 99285; J2270; J2405